=== PATIENT | male | born 1970 | race Caucasian/White ===

== ENCOUNTER 2025-08-10 11:28 | Emergency (ER) | payer OTHER, SELFPAY ==
[2025-08-10 11:29] VITALS: BP 161/102; PULSE 78; RESP 18; TEMP 36.6; O2SAT 99; BMI 33.3
[2025-08-10] MEDS: Lidocaine 1% (20 ml mdv) 20 ML Vial INFILT (14:39)
--- NOTE | 2025-08-10 14:41 | EDS_ITS ---
HPI History of Present Illness Chief Complaint: Laceration Narrative Narrative: Chief complaint and HPI: 55-year-old gentleman who is up-to-date on tetanus presents for evaluation of right palm laceration. Injury happened at work. Patient states that he was moving boxes out of a truck when there was broken glass that cut his thenar eminence. Glass was from a broken mirror. He denies any numbness or tingling. Denies injury elsewhere. Review of systems: See HPI Medications: As listed on the chart Allergies: As listed on the chart PFSH: Per chart Vital signs: As listed on the chart. Reviewed. Physical exam: Gen: A&O x3, NAD Head: Normocephalic, atraumatic Eyes: No sclera icterus, conjunctiva clear CV: Regular rate Resp: Nonlabored respiration Musc: Full range of motion of the right wrist/hand/fingers/thumb, there is a 2.5 cm laceration to the right thenar eminence without active bleeding, radial pulse +2, good capillary refill, sensation intact PFS PFSH Medical History (Updated 08/10/25 @ 15:[address] Vahid Dooley DO) Prostate cancer Home Medications ?Medication ?Instructions ?Recorded ?Last Taken ?Type NK 08/10/25 Unknown History Allergy/AdvReac Type Severity Reaction Status Date / Time No Known Allergies Allergy Verified 08/10/25 11:32 Family History no significant family his Surgical History no surgical history Social History Smoking Status: Never smoker EXAM Physical Exam Const Vital Signs: 08/10/25 11:29 Temperature 97.9 F Temperature Source Oral Pulse Rate 78 Respiratory Rate 18 Blood Pressure 161/102 H Blood Pressure Mean 121 Pulse Ox 99 Oxygen Delivery Method Room Air MDM MDM MDM Narrative Medical decision making narrative: 55-year-old gentleman who is up-to-date on tetanus presents for evaluation of right palm laceration. Injury happened at work. Patient states that he was moving boxes out of a truck when there was broken glass that cut his thenar eminence. Glass was from a broken mirror. He denies any numbness or tingling. See physical exam findings. Patient will require laceration repair. Patient tolerated repair well. Patient is left-handed. Patient needs follow-up with Worker's Comp. Monitor for signs of infection. Stitches need to come out in 7 to 10 days. Patient confirmed understand the plan. Patient stable to discharge home. Laceration Repair Indication: Laceration Location: 2.5 cm right thenar eminence laceration Consent: Risks, benefits, and alternatives discussed with patient and consent obtained Procedure: The area was prepped and draped in the usual sterile fashion. Local anesthesia was achieved using 1% Lidocaine without epinephrine. The wound was copiously irrigated and cleaned. 6 sutures were placed using 4 oh and Ethilon in an interrupted fashion. The estimated blood loss was minimal. A dressing was applied to the area with Bacitracin. The patient tolerated the procedure well without complications. Foreign Material: None Debridement: None Follow-up: Anticipatory guidance, as well as standard post-procedure care, was explained. Return precautions are given. Follow-up visit set for suture removal and evaluation of the laceration. Impression: 1. Right thenar eminence laceration with suture repair 2. Injury at work Discharge Plan Triage Chief Complaint: Laceration ED Provider: Vahid Dooley Dx/Rx/DC Orders Clinical Impression: Hand laceration Instructions: ED Laceration, All Closures Prescriptions: No Action NK Primary Care Provider: Fletcher Ennis Referrals: [facility] [Group of Physicians, Medical] - 3-5 Days Fletcher Ennis MD [Primary Care Provider, Internal Medicine] Activity Restrictions/Additional Instructions: Follow-up with Worker's Compensation. Okay to shower in 24 hours. Do not scrub the laceration when washing hands. No lakes, [place], hot tubs, swimming pools, oceans, soaking in the bathtub until fully healed. Sutures need to removed in 7 to 10 days. Monitor for signs of infection. Print Language: Nauruan Disposition Disposition: Home, Self Care
[2025-08-10 15:29] VITALS: BP 145/86; PULSE 52; RESP 16
[2025-08-10 15:34] VITALS: BP 145/86; PULSE 52; RESP 16; TEMP 36.6; O2SAT 99
== END 2025-08-10 15:36 | disposition home or self-care (01) ==
PROVIDERS: Emergency Provider Surgery; PCP Internal Medicine; Visit Provider Surgery
DX: S61.411A Laceration without foreign body of right hand, initial encounter (principal); W25.XXXA Contact with sharp glass, initial encounter; Y99.0 Civilian activity done for income or pay
CPT/HCPCS: 12001; 99284